=== PATIENT | female | born 1990 | race Caucasian/White ===

== ENCOUNTER 2017-06-27 16:31 | Emergency (ER) | payer BC ==
[2017-06-27 16:37] VITALS: BMI 31.6
[2017-06-27] MEDS ORDERED: TORADOL 30 MG VIAL ONE (16:42)
[2017-06-27] MEDS ORDERED: ZOFRAN INJ 4 MG VIAL ONE ×2 (16:42→18:45)
[2017-06-27] MEDS ORDERED: TORADOL 30 MG VIAL IVP ONE (16:52)
[2017-06-27] MEDS ORDERED: ZOFRAN INJ 4 MG VIAL IVP ONE ×2 (16:52→18:41)
--- NOTE | 2017-06-27 17:06 | DR.GENAD ---
HPI - PCP Primary Care Physician: Jeff - HPI Comment HPI Comment: PAIN GETTING WORSE. HISTORY KIDNEY STONE. NO FEVER. - Complaint/Symptoms Chief Complaint Doctors Comments: LEFT FLANK PAIN TIMES SEVERAL HOURS. Chief Complaint:: "I have a history of kidney stones but I can normally pass them at home. This is by far the worst one that I have ever felt. I am in extreme pain." - Nurses notes reviewed Nurses Notes Review: Yes - Source History Provided: Patient - Mode of Arrival Mode of Arrival: Ambulatory - Timing Onset of Chief Complaint: 06/27/17 Came on: Suddenly - Duration Duration: Constant Duration: Hours - Severity Severity: Moderate PMH - PMH Past Medical History: No Past Surgical History: No - Family History History of Family Medical Conditions: Yes Family Medical History: Diabetes Mellitus, Cancer, [place], Hypertension - Social History Does patient currently use any type of tobacco product: No Have you used tobacco products in the last 12 months: No Type of Tobacco Use: None Does any household member use tobacco: No Alcohol Use: None Do you use any recreational Drugs:: No Lives With: Family Lives Where: Home - infectious screening In the last 2 months have you had wt loss of >10#?: NO Have you had fever, night sweats or hemotysis?: No Have you traveled outside the country in the last 6 months?: No Isolation: Standard ROS - Review of Systems Constitutional: No Symptoms Reported Eyes: No Symptoms Reported ENTM: No Symptoms Reported Respiratoy: No Symptoms Reported Cardiovascular: No Symptoms Reported Gastrointestinal/Abdominal: Abdominal Pain, Nausea Genitourinary: No Symptoms Reported Neurological: No Symptoms Reported Musculoskeletal: Back Pain, Back Integumentary: No Symptoms Reported Hematologic/Lymphatic: No Symptoms Reported Endocrine: No Symptoms Reported All Other Systems: Reviewed and Negative PE - Vital Signs Vitals: Temperature 98 F Pulse Rate [Right Brachial] 112 Pulse Rate 104 Respiratory Rate 20 Blood Pressure [Right Arm] 132/73 Blood Pressure 131/90 O2 Sat by Pulse Oximetry 100 - General Limitations: No Limitations General Appearance: Alert - Head Head Exam: Normal Inspection - Eyes Eye exam: Normal Appearance - ENT ENT Exam: Normal External Ear Exam External Ear Exam: Normal External Inspection TM/Canal Exam: Bilateral Normal Nose Exam: Normal Nose Exam Mouth Exam: Normal Inspection Throat Exam: Tonsillar Erythema - Neck Neck Exam: Trachea Midline - Chest Chest Inspection: Symmetric Chest Wall Rise - Respiratory Respiratory Exam: Normal Lung Sounds Bilat Respiratory Exam: Bilateral Clear to Auscultation - Cardiovascular Cardiovascular Exam: Regular Rate, Normal Rhythm, Normal Heart Sounds - Abdominal Exam Abdominal Exam: Normal Bowel Sounds, Soft. negative: Tenderness - Extremities Extremities Exam: Normal Inspection - Back Back Exam: (L) CVA Tenderness - Neurologic Neurological Exam: Alert, Oriented X3 - Psychiatric Psychiatric Exam: Normal Affect, Normal Mood - Skin Skin Exam: Normal Color MDM - Additional Information Additional Information Obtained From: Family - Differential Diagnosis Differential Diagnosis: LEFT FLANK PAIN, UTI, ABDOMINAL PAIN, KIDNEY STONE. Course - Treatment Treatment: SEE ORDERS. - Education/Counseling Education/Counseling: Patient, Family, Education Educated On: Treatment, Diagnosis, Needs for Follow Up ROR - Labs Reviewed Laboratory Results Reviewed?: Yes Result Diagrams: 06/27/17 17:17 06/27/17 17:17 Laboratory: 06/27/17 19:53 Urine,Clean Catch Urine Culture - Preliminary WBC 20.7 X10^3/uL (3.6-10.0) H 06/27/17 17:17 RBC 4.65 X10^6/uL (3.5-5.4) 06/27/17 17:17 Hgb 14.0 g/dL (12.0-16.0) 06/27/17 17:17 Hct 40.8 % (36.0-47.0) 06/27/17 17:17 MCV 87.7 fL (80.0-100.0) 06/27/17 17:17 MCH 30.2 pg (27.0-34.0) 06/27/17 17:17 MCHC 34.4 g/dL (33.0-35.0) 06/27/17 17:17 RDW 12.7 % (11.6-16.5) 06/27/17 17:17 Plt Count 370 X10^3/uL (150.0-450.0) 06/27/17 17:17 MPV 8.7 fL (7.4-11.0) 06/27/17 17:17 Neut % 89.5 % (42.0-75.0) H 06/27/17 17:17 Lymph % 7.0 % (21.0-51.0) L 06/27/17 17:17 [place] % 3.1 % (0.0-13.0) 06/27/17 17:17 Eos % 0.1 % (0.9-2.9) L 06/27/17 17:17 Baso % 0.3 % (0.2-1.0) 06/27/17 17:17 Neut # 18.5 x10^3/uL (2.2-4.8) H 06/27/17 17:17 Lymph # 1.4 X10^3/uL (1.3-2.9) 06/27/17 17:17 [place] # 0.6 x10^3/uL (0.3-0.8) 06/27/17 17:17 Eos # 0.0 x10^3/uL (0.0-0.2) 06/27/17 17:17 Baso # 0.1 X10^3/uL (0.0-0.1) 06/27/17 17:17 Absolute Nucleated RBC 0.0 /100WBC 06/27/17 17:17 Sodium 139 mmol/L (136-145) 06/27/17 17:17 Corrected Sodium 140 mmol/L (136-145) 06/27/17 17:17 Potassium 3.6 mmol/L (3.5-5.1) 06/27/17 17:17 Chloride 104 mmol/L (98-107) 06/27/17 17:17 Carbon Dioxide 21.7 mmol/L (21-32) 06/27/17 17:17 BUN 12 mg/dL (7-18) 06/27/17 17:17 Creatinine 1.26 mg/dL (0.55-1.02) H 06/27/17 17:17 Est GFR (MDRD) Af Amer > 60 (>60) 06/27/17 17:17 Est GFR (MDRD) Non-Af 55 (>60) L 06/27/17 17:17 Glucose 130 mg/dL (65-99) H 06/27/17 17:17 Lactic Acid 3.9 mmol/L (0.4-2.0) H 06/27/17 20:46 Calcium 9.2 mg/dL (8.5-10.1) 06/27/17 17:17 Corrected Calcium TNP 06/27/17 17:17 Total Bilirubin 0.30 mg/dL (0.2-1.0) 06/27/17 17:17 AST 29 Units/L (15-37) 06/27/17 17:17 ALT 52 Units/L (12-78) 06/27/17 17:17 Alkaline Phosphatase 111 Units/L (46-116) 06/27/17 17:17 Total Protein 8.1 g/dL (6.4-8.2) 06/27/17 17:17 Albumin 4.3 g/dL (3.4-5.0) 06/27/17 17:17 Globulin 3.8 g/dL (2.5-4.5) 06/27/17 17:17 Albumin/Globulin Ratio 1.1 Ratio (1.1-2.1) 06/27/17 17:17 Specimen Type Clean catch urine 06/27/17 19:53 Urine Color Yellow (YELLOW) 06/27/17 19:53 Urine Appearance Cloudy (CLEAR) 06/27/17 19:53 Urine pH 6.0 (5.0 - 8.0) 06/27/17 19:53 Ur Specific Emmett 1.020 (1.000-1.030) 06/27/17 19:53 Urine Protein 1+ (NEGATIVE) 06/27/17 19:53 Urine Glucose (UA) Negative (NEGATIVE) 06/27/17 19:53 Urine Ketones 1+ (NEGATIVE) 06/27/17 19:53 Urine Occult Blood 4+ (NEGATIVE) 06/27/17 19:53 Urine Nitrite Positive (NEGATIVE) 06/27/17 19:53 Urine Bilirubin Negative (NEGATIVE) 06/27/17 19:53 Urine Urobilinogen Normal (NORMAL) 06/27/17 19:53 Ur Leukocyte Esterase 2+ (NEGATIVE) 06/27/17 19:53 Urine RBC 10 - 15 /HPF (NEGATIVE) 06/27/17 19:53 Urine WBC 12 - 15 /HPF (NEGATIVE) 06/27/17 19:53 Ur Squamous Epith Cells Few /HPF (NEGATIVE) 06/27/17 19:53 Urine Bacteria 2+ /HPF (NEGATIVE) 06/27/17 19:53 Ur Culture Indicated? Yes/culture set up 06/27/17 19:53 - XRAY XRAY Interpreted by: Radiologist XRAY Findings: REPORT DISCUSS WITH PATIENT AND FAMILY. - Diagnosis Discharge Problem: Kidney stone on left side, Intractable pain Sepsis Qualifiers: Sepsis type: sepsis due to unspecified organism Qualified Code(s): A41.9 - Sepsis, unspecified organism - Discharge Plan Disposition: XFER [facility] HOS[facility] Condition: Stable - Follow ups/Referrals Follow ups/Referrals: MARVIN SANFORD [Primary Care Provider] - 3 days - Instructions
[2017-06-27 17:44] LABS: BASOPHILS # (AUTO) 0.1 X10^3/uL (0.0-0.1); BASOPHILS % (AUTO) 0.3 % (0.2-1.0); EOSINOPHILS % (AUTO) 0.1 % (0.9-2.9); HEMATOCRIT 40.8 % (36.0-47.0); LYMPHOCYTES # (AUTO) 1.4 X10^3/uL (1.3-2.9); MEAN CORPUSCULAR HEMOGLOBIN 30.2 pg (27.0-34.0); MEAN CORPUSCULAR HGB CONC 34.4 g/dL (33.0-35.0); MEAN CORPUSCULAR VOLUME 87.7 fL (80.0-100.0); MEAN PLATELET VOLUME 8.7 fL (7.4-11.0); MONOCYTES # (AUTO) 0.6 x10^3/uL (0.3-0.8); MONOCYTES % (AUTO) 3.1 % (0.0-13.0); NEUTROPHILS # (AUTO) 18.5 x10^3/uL (2.2-4.8); NEUTROPHILS % (AUTO) 89.5 % (42.0-75.0); PLATELET COUNT 370 X10^3/uL (150.0-450.0); RED BLOOD COUNT 4.65 X10^6/uL (3.5-5.4); RED CELL DISTRIBUTION WIDTH 12.7 % (11.6-16.5); WHITE BLOOD COUNT 20.7 X10^3/uL (3.6-10.0)
[2017-06-27 17:51] LABS: ALANINE AMINOTRANSFERASE 52 Units/L (12-78); ALBUMIN 4.3 g/dL (3.4-5.0); ALKALINE PHOSPHATASE 111 Units/L (46-116); ASPARTATE AMINO TRANSFERASE 29 Units/L (15-37); BLOOD UREA NITROGEN 12 mg/dL (7-18); CALCIUM 9.2 mg/dL (8.5-10.1); CARBON DIOXIDE 21.7 mmol/L (21-32); CHLORIDE 104 mmol/L (98-107); COR NA(FOR HYPERGLY) 140 mmol/L (136-145); CREATININE 1.26 mg/dL (0.55-1.02); SODIUM 139 mmol/L (136-145); TOTAL PROTEIN 8.1 g/dL (6.4-8.2); eGFR BLACK RACES > 60 (>60); eGFR NON BLACK RACES 55 (>60)
--- NOTE | 2017-06-27 18:30 | CT ---
CT ABDOMEN AND PELVIS WITHOUT CONTRAST CLINICAL HISTORY: 26-year-old female with left flank pain and history of renal stones. COMPARISON: None. TECHNIQUE: Multiple contiguous computed tomographic axial images of the abdomen and pelvis were obtai betty without the use of oral or intravenous contrast. Images were reformatted in the coronal and sagit salomon planes. FINDINGS: The lung bases demonstrate no evidence of focal air-space opacification, pleural effusion, pneumothor ax, or suspicious pulmonary nodules. The imaged inferior mediastinum and heart are normal in appeara nce without evidence of pericardial effusion. The liver, gallbladder, pancreas, and spleen are within normal limits for noncontrast imaging. Adrenal glands are unremarkable bilaterally. Multiple sandlike nonobstructive right renal parenchymal/pelvic stones. Multiple left renal pelvic and parenchymal stones measuring up to 7 mm with a proximal 6 mm left uret eral stone with resultant moderate hydroureteronephrosis and stranding without fluid collection. Uret ers course normally to the moderately distended urinary bladder. The uterus is anteverted and normal in size. The ovaries, vagina and perineum are within normal limi ts. Multiple pelvic phleboliths. The appendix is normal in appearance. The bowel is without obstruction or inflammation and there is no free fluid or free air within the peritoneal cavity. There are no pathologically enlarged lymph n odes in the abdomen or pelvis. The arteriovascular structures are within normal limits for a study without contrast. Soft tissues are normal. The osseous structures are intact without fracture or malalignment. IMPRESSION: 1. 6 mm obstructing left proximal ureteral stone with resultant moderate hydroureteronephrosis and pe rinephric/periureteric stranding without fluid collection. 2. Multiple left renal parenchymal and pelvic stones measuring up to 7 mm. 3. Multiple sandlike nonobstructing right renal stones. 4. Normal appendix. 5. No other acute intra-abdominal or intrapelvic process. Reported By:
[2017-06-27] MEDS ORDERED: NS 1000 ML 1,000 ML IV ONE (18:41)
[2017-06-27] MEDS ORDERED: DEMEROL INJ IVP ONE (18:41)
[2017-06-27] MEDS ORDERED: NS 1000 ML 1,000 ML ONE ×2 (18:45→20:46)
[2017-06-27] MEDS ORDERED: DEMEROL INJ ONE (18:46)
[2017-06-27 20:04] LABS: BILIRUBIN,URINE NEGATIVE (NEGATIVE); BLOOD/HEMOGLOBIN,URINE 4+ (NEGATIVE); GLUCOSE, URINE NEGATIVE (NEGATIVE); KETONES,URINE 1+ (NEGATIVE); LEUKOCYTE ESTERASE ,URINE 2+ (NEGATIVE); NITRITES,URINE POSITIVE (NEGATIVE); PROTEIN,URINE 1+ (NEGATIVE); UROBILINOGEN,URINE NORMAL (NORMAL)
[2017-06-27 20:05] LABS: APPEARANCE,URINE CLOUDY (CLEAR); COLOR,URINE YELLOW (YELLOW)
[2017-06-27 20:11] LABS: BACTERIA,URINE 2+ /HPF (NEGATIVE); SQUAMOUS EPITHELIAL CELL,UR FEW /HPF (NEGATIVE)
[2017-06-27] MEDS ORDERED: PHENERGAN INJ 25 MG IV ONE ×2 (20:16→22:11)
[2017-06-27] MEDS ORDERED: PHENERGAN INJ 25 MG ONE ×2 (20:17→22:12)
[2017-06-27] MEDS ORDERED: CIPRO IV 400 MG PREMIX* 400 MG/200 ML IV.SOLN. IV ONE ×2 (20:33→20:46)
[2017-06-27] MEDS ORDERED: ROCEPHIN VIAL 1 GM 1 GM in NS 100 ML IV + SPIKE MINIBAG* 100 ML IV ONE (20:33)
[2017-06-27] MEDS ORDERED: FLOMAX ONE (20:44)
[2017-06-27] MEDS ORDERED: NS 1000 ML 1,000 ML IV SCH (21:00)
[2017-06-27] MEDS ORDERED: FLOMAX PO SCH (21:00)
[2017-06-27 22:10] VITALS: BP 132/73
[2017-06-27] MEDS ORDERED: DILAUDID INJ IVP ONE (22:11)
[2017-06-27] MEDS ORDERED: DILAUDID INJ ONE (22:12)
[2017-06-27] MEDS ORDERED: ROCEPHIN VIAL 1 GM ONE (22:25)
[2017-06-27] MEDS ORDERED: NS 100 ML IV 100 ML IV ONE (22:25)
== END 2017-06-27 22:49 | disposition short-term general hospital (02) ==
LOC: EDSEX 16:47 → ER 16:47
DX: N20.0 Calculus of kidney (principal); R52 Pain, unspecified; A41.9 Sepsis, unspecified organism; B96.4 Proteus (mirabilis) (morganii) as the cause of diseases classified elsewhere
CPT/HCPCS: 36415; 74176; 80053; 81001; 83605; 85025; 87040; 87077; 87086; 87088; 87186; 96365; 96367; 96374; 96375; 99284; 99285; A4222; J0696; J0744; J1885; J2175; J2405; J2550